=== PATIENT | female | born 1955 | race Caucasian/White ===

== ENCOUNTER 2018-11-24 19:30 | Emergency (ER) | payer MEDICAID ==
[~2018-11-24] VITALS: Ht 160 cm; Wt 93.9 kg
[2018-11-24 19:45] VITALS: Ht 160 cm; Wt 93.9 kg
[2018-11-24 22:29] VITALS: BP 147/106
== END 2018-11-24 22:29 | disposition home or self-care (01) ==
LOC: ED 19:30
DX: S20.212A Contusion of left front wall of thorax, initial encounter (principal); F17.210 Nicotine dependence, cigarettes, uncomplicated; M79.7 Fibromyalgia; Z88.2 Allergy status to sulfonamides; X58.XXXA Exposure to other specified factors, initial encounter; Y93.89 Activity, other specified; Y92.89 Other specified places as the place of occurrence of the external cause; Y99.8 Other external cause status
CPT/HCPCS: 99406